=== PATIENT | male | born 1980 | race Caucasian/White ===

== ENCOUNTER 2023-02-18 12:54 | Inpatient (IN) | payer MEDICARE, MEDICAID ==
[~2023-02-18] VITALS: Ht 170.2 cm; Wt 84.0 kg
[~2023-02-18 12:54] MED LIST: DULO60CA59 PO; ESZO2TAB31 PO; GABA-532 PO; INSU100C10 SQ; LISI5TAB22 PO; PANT-47 PO; POTA15TA11 PO; WARF-65 PO
--- NOTE | 2023-02-18 13:09 | NUR ---
PT HAS AN INSULIN PUMP ADMINISTERED BOLUS PRIOR TO ARRIVAL PT UNSURE OF AMOUNT
[2023-02-18 13:13] LABS: BASOPHILS # (AUTO) 0.1 X10'3 (0-0.2); BASOPHILS % (AUTO) 0.3 % (0-1); EOSINOPHILS % (AUTO) 0 % (0-6); HEMOGLOBIN 12.4 g/dl (14.0-17.9); LYMPHOCYTES # (AUTO) 1.7 X10'3 (1.1-4.8); LYMPHOCYTES % (AUTO) 6.4 % (21-51); MEAN CORPUSCULAR HEMOGLOBIN 28.6 PG (27.0-31.0); MEAN CORPUSCULAR HGB CONC 33.5 g/dL (33.0-36.5); MEAN CORPUSCULAR VOLUME 85.5 FL (78-98); MONOCYTES # (AUTO) 1.6 X10'3 (0-0.9); NEUTROPHILS # (AUTO) 23.6 X10'3 (1.8-7.7); NEUTROPHILS % (AUTO) 87.3 % (42-75); PLATELET COUNT 207 X10'3 (140-440); RED BLOOD COUNT 4.33 X10'6 (4.70-6.10)
[2023-02-18 13:25] LABS: ALANINE AMINOTRANSFERASE 487 U/L (12-78); ALBUMIN 4.1 G/DL (3.4-5.0); ALBUMIN/GLOBULIN RATIO 1.6 (1.1-1.5); ALKALINE PHOSPHATASE 110 IU/L (46-116); ANION GAP 13 (8-16); ASPARTATE AMINO TRANSFERASE 297 U/L (10-37); BILIRUBIN,TOTAL 0.6 MG/DL (0.1-1.0); BLOOD UREA NITROGEN 32 MG/DL (7-18); CALCIUM 9.4 MG/DL (8.5-10.1); CHLORIDE 91 MMOL/L (99-107); GLUCOSE 444 MG/DL (70-104); POTASSIUM 4.8 MMOL/L (3.5-5.1); SODIUM 131 MMOL/L (135-145); TOTAL CARBON DIOXIDE 26.8 MMOL/L (24-32); TOTAL PROTEIN 6.6 G/DL (6.4-8.2); eGFR 37 ML/MIN
[2023-02-18] MEDS ORDERED: normal saline 1000ML IV soln IVB ONE ×2 (13:25)
[2023-02-18 13:33] LABS: MAGNESIUM 1.4 MG/DL (1.5-2.4)
[2023-02-18] MEDS ORDERED: CefTRIAXone 2gm/D5W 50ml BAG 50 ML IV ONE (13:35)
[2023-02-18] MEDS ORDERED: metoclopramide 5 mg/ml inj IV ONE (13:35)
[2023-02-18] MEDS ORDERED: ondansetron/PF 4mg/2ml inj IV ONE (13:35)
[2023-02-18 13:39] LABS: PLATELET ESTIMATE NORMAL; TOTAL CELLS COUNTED 100
[2023-02-18] MEDS ORDERED: normal saline 1000ML IV soln IV ONE ×2 (13:40→15:15)
[2023-02-18] MEDS ORDERED: morphine 4 MG/ML inj SYRINge IV ONE (13:50)
[2023-02-18 14:44] LABS: CLARITY,URINE CLOUDY (Clear); COLOR,URINE YELLOW (Yellow); GLUCOSE, URINE >=1000 mg/dl (Neg); KETONES,URINE 15 mg/dl (Neg); LEUKOCYTE ESTERASE ,URINE TRACE (Neg); NITRITES, URINE NEGATIVE (Neg); OCCULT BLOOD,URINE TRACE-INTACT (Neg); PROTEIN,URINE TRACE mg/dl (Neg); UROBILINOGEN,URINE 0.2 E.U/dL (0.2-1.0)
[2023-02-18 14:45] LABS: UA COLLECTION TYPE SUPRAPUBIC CATH
[2023-02-18 14:49] LABS: BACTERIA,URINE FEW /HPF (Neg); CAL OXALATE CRYSTALS 1+ /HPF (NEGATIVE); MUCUS STRANDS NONE SEEN /LPF (Neg); RBC,URINE 0-2 /HPF (0-2); RENAL CELLS, URINE FEW /HPF; SQUAMOUS EPITHELIAL CELL,UR NONE SEEN /LPF (FEW); WBC,URINE 0-4 /HPF (0-4)
[2023-02-18 14:50] LABS: FINE GRANULAR CAST 0-3 /LPF (NEGATIVE)
[2023-02-18] MEDS ORDERED: insulin regular, human 10 units/0.1 ml syringe SQ ONE (15:15)
[2023-02-18] MEDS ORDERED: ringers solution, lacted 1,000 ML IV ONE (15:15)
[2023-02-18] MEDS ORDERED: WARF4TAB69 PO (15:51)
[2023-02-18] MEDS ORDERED: WARF-55 PO (15:51)
[2023-02-18] MEDS ORDERED: ROSU20TA31 PO (15:52)
[2023-02-18] MEDS ORDERED: ONDA4TAB12 PO (15:53)
[2023-02-18] MEDS ORDERED: METO5TAB98 PO (15:54)
[2023-02-18] MEDS ORDERED: BUSP7.5T5 PO (15:55)
[2023-02-18] MEDS ORDERED: LOPE2CAP PO ×3 (15:56)
[2023-02-18] MEDS ORDERED: LACT1CAP65 PO (15:57)
[2023-02-18] MEDS ORDERED: MAGN200T8 PO (15:58)
[2023-02-18] MEDS ORDERED: CIDE600C PO (15:59)
[2023-02-18] MEDS ORDERED: CHOL20004 PO (16:00)
[2023-02-18] MEDS ORDERED: CRAN1CAP5 PO (16:01)
[2023-02-18] MEDS ORDERED: potassium Cl 20 mEq SR tablet PO PRN ×2 (16:15)
[2023-02-18] MEDS ORDERED: dextrose 50%-water 50ml dispensing syringe IV PRN ×2 (16:15)
[2023-02-18] MEDS ORDERED: MESSAGE TO PHARMACY PO ONE (16:15)
[2023-02-18] MEDS ORDERED: potassium Cl 40MEQ/1/2NS 520ml 520 ML IV PRN (16:15)
[2023-02-18] MEDS ORDERED: magnesium Cl slow-release 64mg tablet PO PRN (16:15)
[2023-02-18] MEDS: normal saline 1000ml 1,000 ML IV SCH ×2 (16:15→20:45)
[2023-02-18] MEDS ORDERED: magnesium 4gm in 100ml NS 100 ML IV PRN (16:15)
[2023-02-18] MEDS ORDERED: DEXTROSE 15 GM of carb/4 tabs (each vial/BOTTLE has 4 tablets) PO PRN ×2 (16:15)
[2023-02-18] MEDS ORDERED: acetaminophen 325mg tablet PO PRN (16:15)
[2023-02-18] MEDS ORDERED: glucagon, human recombinant 1mg kit SUBCUT PRN (16:15)
[2023-02-18] MEDS ORDERED: VANCOmycin 2,000MG in NS 500ml IV soln IV ONE (17:00)
[2023-02-18] MEDS: piperacillin/tazo 3.375gm/50ml 50 ML IV SCH ×2 (17:23→23:28)
--- NOTE | 2023-02-18 17:48 | NUR ---
DR CORADO NOTIFIED RE PTS INCREASED LACTIC ACID ORDERS TO REPEAT LACTIC LEVEL IN 6 HRS
--- NOTE | 2023-02-18 18:52 | NUR ---
PER DR FOX DO NOT TURN OF PTS INSULIN PUMP
[2023-02-18 19:08] VITALS: BP 132/73
[2023-02-18] MEDS: K and/or MAG REPLACEMENT MC SCH (19:13)
[2023-02-18] MEDS: pantoprazole 40mg Tablet.DR PO SCH (19:35)
[2023-02-18] MEDS: gabapentin 400mg capsule PO SCH (19:35)
[2023-02-18] MEDS: zolpidem 5mg tablet PO SCH (20:10)
[2023-02-18] MEDS: metoclopramide 10mg tablet PO SCH (20:10)
[2023-02-18] MEDS: busPIRone 5mg tablet PO SCH (20:10)
[2023-02-18] MEDS: insulin Lispro (HumaLOG) vial - multi-dose SQ SCH ×2 (20:21→21:13)
[2023-02-18] MEDS ORDERED: ROSUVASTATIN CALCIUM 5 MG TABLET PO SCH (21:00)
[2023-02-18] MEDS ORDERED: warfarin 5mg tablet PO ONE (21:00)
[2023-02-18] MEDS: insulin glargine (Lantus) pen - multi-dose SQ SCH (21:12)
[2023-02-18 22:14] VITALS: BP 97/49
[2023-02-19 02:21] VITALS: BP 92/51
[2023-02-19] MEDS: normal saline 1000ml 1,000 ML IV SCH ×2 (02:23→09:39)
--- NOTE | 2023-02-19 06:15 | NUR ---
Patient in room PCU 3013. I have received report from Bc ONEILL and had the opportunity to ask questions and assume patient care. Bedside report completed. Pt awake and alert, Call light in reach. Addendum: 02/19/23 at 0638 by Brisa Zuleta RN Amended: Links added.
[2023-02-19 06:59] LABS: BASOPHILS # (AUTO) 0.1 X10'3 (0-0.2); BASOPHILS % (AUTO) 0.3 % (0-1); EOSINOPHILS # (AUTO) 0.1 X10'3 (0-0.9); EOSINOPHILS % (AUTO) 0.3 % (0-6); HEMATOCRIT 32.7 % (42.0-52.0); HEMOGLOBIN 10.9 g/dl (14.0-17.9); LYMPHOCYTES # (AUTO) 2.5 X10'3 (1.1-4.8); LYMPHOCYTES % (AUTO) 11.9 % (21-51); MEAN CORPUSCULAR HEMOGLOBIN 28.7 PG (27.0-31.0); MEAN CORPUSCULAR HGB CONC 33.2 g/dL (33.0-36.5); MEAN CORPUSCULAR VOLUME 86.5 FL (78-98); MEAN PLATELET VOLUME 9.7 FL (7.4-10.4); MONOCYTES % (AUTO) 4.5 % (2-12); NEUTROPHILS # (AUTO) 17.7 X10'3 (1.8-7.7); PLATELET COUNT 166 X10'3 (140-440); RED BLOOD COUNT 3.78 X10'6 (4.70-6.10); RED CELL DISTRIBUTION WIDTH 13.5 % (11.5-14.5); WHITE BLOOD COUNT 21.3 X10'3 (4.5-11.0)
[2023-02-19 07:13] LABS: ALANINE AMINOTRANSFERASE 250 U/L (12-78); ALBUMIN 2.9 G/DL (3.4-5.0); ALBUMIN/GLOBULIN RATIO 1.4 (1.1-1.5); ALKALINE PHOSPHATASE 70 IU/L (46-116); ANION GAP 10 (8-16); ASPARTATE AMINO TRANSFERASE 90 U/L (10-37); BILIRUBIN,TOTAL 0.4 MG/DL (0.1-1.0); BLOOD UREA NITROGEN 31 MG/DL (7-18); BUN/CREATININE RATIO 24.4 (10.0-20.0); CALCIUM 7.7 MG/DL (8.5-10.1); CHLORIDE 103 MMOL/L (99-107); CREATININE 1.27 MG/DL (0.60-1.10); GLUCOSE 271 MG/DL (70-104); POTASSIUM 3.9 MMOL/L (3.5-5.1); SODIUM 137 MMOL/L (135-145); TOTAL CARBON DIOXIDE 23.9 MMOL/L (24-32); eGFR 63 ML/MIN
[2023-02-19 07:20] VITALS: BP 143/83
--- NOTE | 2023-02-19 07:29 | NUR ---
PAGER ID: [phone] MESSAGE: [id number] [place] PT 48.2 INR 5.2. Was 24.9/ 2.6 was given pharmacy dosed coumadin last noc. unknown amount. Brisa PICKARD
[2023-02-19] MEDS: ondansetron/PF 4mg/2ml inj IV PRN ×2 (07:34→13:53)
[2023-02-19] MEDS: K and/or MAG REPLACEMENT MC SCH ×2 (08:00→20:00)
[2023-02-19] MEDS: POTASSIUM CITRATE 15 MEQ PO SCH (08:00)
--- NOTE | 2023-02-19 08:15 | NUR ---
PAGER ID: [phone] MESSAGE: [id number] [place]. C/O pain 9 in back. C/O nausea zofran given. Pt has only tylenol for pain. Can we have an order for IV pain meds? Brisa PICKARD
[2023-02-19] MEDS: insulin Lispro (HumaLOG) vial - multi-dose SQ SCH ×3 (08:40→17:47)
[2023-02-19] MEDS: acetaminophen 325mg tablet PO PRN (08:41)
[2023-02-19] MEDS: morphine 2 MG/ML inj. syringe IV PRN ×3 (09:40→22:57)
[2023-02-19] MEDS: busPIRone 5mg tablet PO SCH ×3 (09:51→22:13)
[2023-02-19] MEDS: pantoprazole 40mg Tablet.DR PO SCH ×2 (09:51→19:47)
[2023-02-19] MEDS: metoclopramide 10mg tablet PO SCH ×3 (09:52→22:13)
[2023-02-19] MEDS: gabapentin 400mg capsule PO SCH ×2 (09:52→19:47)
[2023-02-19] MEDS: magnesium oxide 400mg tablet PO SCH (09:54)
[2023-02-19] MEDS: piperacillin/tazo 3.375gm/50ml 50 ML IV SCH ×2 (09:55→16:05)
[2023-02-19 11:36] VITALS: BP 159/81
[2023-02-19 15:32] VITALS: BP 162/87
[2023-02-19] MEDS ORDERED: vancomycin/NS 1 GM ADD-VANTAGE 250 ML IV SCH (17:00)
--- NOTE | 2023-02-19 17:55 | NUR ---
PAGER ID: [phone] MESSAGE: [id number] Karen Has had two SBP over 160. He is to have Crestor 20mg BID. [facility] does not carry that. He remains NPO with NS @ 150.
[2023-02-19 18:00] VITALS: BP 166/90
--- NOTE | 2023-02-19 18:29 | NUR ---
Problems reprioritized. Patient report given, questions answered & plan of care reviewed with Debra BAEZ. Bedside report completed. Pt C/O nausea. Zofran will be given when dose is due. Addendum: 02/19/23 at 1832 by Brisa Zuleta RN Amended: Links added.
[2023-02-19] MEDS: lisinopril 10 MG tablet PO SCH (19:47)
[2023-02-19] MEDS: amLODIPine 5mg tablet PO SCH (19:48)
[2023-02-19] MEDS: insulin glargine (Lantus) pen - multi-dose SQ SCH (21:00)
[2023-02-19 22:00] VITALS: BP 147/71
[2023-02-19] MEDS: atorvastatin 20mg tablet PO SCH (22:14)
[2023-02-19] MEDS: zolpidem 5mg tablet PO SCH (22:14)
[2023-02-19] MEDS: ondansetron 4mg rapidly disintigrating tab PO PRN (22:14)
[2023-02-20] MEDS: piperacillin/tazo 3.375gm/50ml 50 ML IV SCH ×4 (00:40→23:39)
[2023-02-20] MEDS: normal saline 1000ml 1,000 ML IV SCH ×3 (00:41→18:15)
[2023-02-20 02:00] VITALS: BP 167/71
--- NOTE | 2023-02-20 03:28 | NUR ---
AGREE WITH CORPORATE GENERAL MANAGER PHYSICAL ASSESSMENT CHARTED.
--- NOTE | 2023-02-20 04:12 | NUR ---
sent page to radiology : [id number] Brandt Jones - pt has order for CT, can he have it done now or if not now can he get it done first thing in the morning. thank you
[2023-02-20] MEDS: ondansetron/PF 4mg/2ml inj IV PRN ×3 (04:16→19:13)
[2023-02-20] MEDS: morphine 2 MG/ML inj. syringe IV PRN ×4 (04:19→21:16)
--- NOTE | 2023-02-20 04:20 | NUR ---
took pt down for CT
[2023-02-20] MEDS ORDERED: vancomycin/NS 1 GM ADD-VANTAGE 250 ML IV SCH (05:00)
[2023-02-20 05:32] LABS: CLARITY,URINE CLEAR (Clear); COLOR,URINE YELLOW (Yellow); GLUCOSE, URINE 250 mg/dl (Neg); KETONES,URINE 40 mg/dl (Neg); LEUKOCYTE ESTERASE ,URINE NEGATIVE (Neg); NITRITES, URINE NEGATIVE (Neg); OCCULT BLOOD,URINE TRACE-INTACT (Neg); PH,URINE 5.5 (4.8-8.0); PROTEIN,URINE NEGATIVE (Neg); UROBILINOGEN,URINE 0.2 E.U/dL (0.2-1.0)
[2023-02-20 05:43] LABS: UA COLLECTION TYPE OTHER
[2023-02-20 05:45] LABS: BACTERIA,URINE NONE SEEN /HPF (Neg); RBC,URINE 0-2 /HPF (0-2); SQUAMOUS EPITHELIAL CELL,UR FEW /LPF (FEW); WBC,URINE 0-4 /HPF (0-4)
[2023-02-20 06:16] LABS: URINE AMPHETAMINE SCREEN NEGATIVE (Neg); URINE BARBITUATE SCREEN NEGATIVE (Neg); URINE BENZODIAZEPINES SCREEN NEGATIVE (Neg); URINE CANNABINOID SCREEN POSITIVE (Neg); URINE COCAINE SCREEN NEGATIVE (Neg); URINE METHADONE SCREEN NEGATIVE (Neg); URINE OPIATE SCREEN POSITIVE (Neg); URINE PHENCYCLIDINE SCREEN NEGATIVE (Neg)
[2023-02-20 06:23] LABS: D-DIMER < 0.19 MG/L FEU (0-0.50)
[2023-02-20 06:29] LABS: BASOPHILS % (AUTO) 0.2 % (0-1); EOSINOPHILS % (AUTO) 0.1 % (0-6); HEMATOCRIT 34.5 % (42.0-52.0); HEMOGLOBIN 11.5 g/dl (14.0-17.9); LYMPHOCYTES # (AUTO) 1.2 X10'3 (1.1-4.8); LYMPHOCYTES % (AUTO) 7.6 % (21-51); MEAN CORPUSCULAR HEMOGLOBIN 28.9 PG (27.0-31.0); MEAN CORPUSCULAR HGB CONC 33.4 g/dL (33.0-36.5); MEAN CORPUSCULAR VOLUME 86.6 FL (78-98); MEAN PLATELET VOLUME 9.5 FL (7.4-10.4); MONOCYTES # (AUTO) 0.8 X10'3 (0-0.9); MONOCYTES % (AUTO) 5.2 % (2-12); NEUTROPHILS # (AUTO) 14.1 X10'3 (1.8-7.7); NEUTROPHILS % (AUTO) 86.9 % (42-75); PLATELET COUNT 149 X10'3 (140-440); RED BLOOD COUNT 3.98 X10'6 (4.70-6.10); RED CELL DISTRIBUTION WIDTH 13.3 % (11.5-14.5); WHITE BLOOD COUNT 16.2 X10'3 (4.5-11.0)
--- NOTE | 2023-02-20 06:29 | NUR ---
called critical lab to Dr Hansen PT 65.9 INR 7.2
--- NOTE | 2023-02-20 06:31 | NUR ---
Problems reprioritized. Patient report given, questions answered & plan of care reviewed with Enrrique ONEILL.
[2023-02-20 06:42] LABS: ALANINE AMINOTRANSFERASE 183 U/L (12-78); ALBUMIN 3.2 G/DL (3.4-5.0); ALBUMIN/GLOBULIN RATIO 1.1 (1.1-1.5); ALKALINE PHOSPHATASE 71 IU/L (46-116); ANION GAP 12 (8-16); ASPARTATE AMINO TRANSFERASE 46 U/L (10-37); BILIRUBIN,TOTAL 0.6 MG/DL (0.1-1.0); BLOOD UREA NITROGEN 23 MG/DL (7-18); BUN/CREATININE RATIO 22.5 (10.0-20.0); C-REACTIVE PROTEIN 2.97 MG/DL (0.0-0.5); CALCIUM 8.1 MG/DL (8.5-10.1); CHLORIDE 102 MMOL/L (99-107); CREATINE KINASE 217 U/L (39-308); CREATININE 1.02 MG/DL (0.60-1.10); GLUCOSE 197 MG/DL (70-104); LIPASE 74 U/L (73-393); PHOSPHORUS 2.3 MG/DL (2.3-4.5); POTASSIUM 3.5 MMOL/L (3.5-5.1); SODIUM 138 MMOL/L (135-145); TOTAL CARBON DIOXIDE 23.8 MMOL/L (24-32); eGFR 81 ML/MIN
[2023-02-20 07:00] VITALS: BP 164/78
[2023-02-20] MEDS: K and/or MAG REPLACEMENT MC SCH ×2 (08:00→19:57)
[2023-02-20] MEDS: POTASSIUM CITRATE 15 MEQ PO SCH (08:00)
[2023-02-20] MEDS: magnesium oxide 400mg tablet PO SCH (08:00)
[2023-02-20] MEDS: busPIRone 5mg tablet PO SCH ×3 (09:04→20:33)
[2023-02-20] MEDS: metoclopramide 10mg tablet PO SCH ×3 (09:04→20:33)
[2023-02-20] MEDS: lisinopril 10 MG tablet PO SCH (09:07)
[2023-02-20] MEDS: gabapentin 400mg capsule PO SCH ×2 (09:07→19:17)
[2023-02-20] MEDS: pantoprazole 40mg Tablet.DR PO SCH ×2 (09:07→19:18)
[2023-02-20] MEDS: amLODIPine 5mg tablet PO SCH (09:08)
[2023-02-20] MEDS: insulin Lispro (HumaLOG) vial - multi-dose SQ SCH ×2 (09:56→19:06)
--- NOTE | 2023-02-20 10:30 | NUR ---
Talked with pt and pt's mother about home med potassium citrate. Mother stated she would bring the pt's med in so we can start giving it.
[2023-02-20 11:00] VITALS: BP 153/76
[2023-02-20 15:00] VITALS: BP 138/63
[2023-02-20] MEDS: VANCOmycin 1250MG/NS 250ml Bag 250 ML IV SCH (16:11)
[2023-02-20 18:00] VITALS: BP 151/80
[2023-02-20] MEDS: acetaminophen 325mg tablet PO PRN (19:17)
[2023-02-20] MEDS: zolpidem 5mg tablet PO SCH (20:33)
[2023-02-20] MEDS: atorvastatin 20mg tablet PO SCH (20:34)
[2023-02-20] MEDS: insulin glargine (Lantus) pen - multi-dose SQ SCH (21:14)
[2023-02-20 22:00] VITALS: BP 151/76
[2023-02-21] MEDS: normal saline 1000ml 1,000 ML IV SCH ×2 (01:51→14:15)
[2023-02-21 02:00] VITALS: BP 136/69
[2023-02-21] MEDS ORDERED: VANCOMYCIN LEVEL IV ONE (04:30)
[2023-02-21] MEDS: VANCOmycin 1250MG/NS 250ml Bag 250 ML IV SCH (05:04)
[2023-02-21 06:39] LABS: BASOPHILS % (AUTO) 0.4 % (0-1); EOSINOPHILS % (AUTO) 0.3 % (0-6); HEMATOCRIT 36.7 % (42.0-52.0); HEMOGLOBIN 12.3 g/dl (14.0-17.9); LYMPHOCYTES % (AUTO) 20.1 % (21-51); MEAN CORPUSCULAR HEMOGLOBIN 29.3 PG (27.0-31.0); MEAN CORPUSCULAR HGB CONC 33.4 g/dL (33.0-36.5); MEAN CORPUSCULAR VOLUME 87.7 FL (78-98); MEAN PLATELET VOLUME 9.1 FL (7.4-10.4); MONOCYTES # (AUTO) 0.9 X10'3 (0-0.9); MONOCYTES % (AUTO) 8.9 % (2-12); NEUTROPHILS # (AUTO) 7.1 X10'3 (1.8-7.7); NEUTROPHILS % (AUTO) 70.3 % (42-75); PLATELET COUNT 146 X10'3 (140-440); RED BLOOD COUNT 4.19 X10'6 (4.70-6.10); WHITE BLOOD COUNT 10.1 X10'3 (4.5-11.0)
--- NOTE | 2023-02-21 06:40 | NUR ---
Problems reprioritized. Patient report given, questions answered & plan of care reviewed with Courtney RN.
[2023-02-21 06:54] LABS: ALANINE AMINOTRANSFERASE 120 U/L (12-78); ALBUMIN 2.9 G/DL (3.4-5.0); ALBUMIN/GLOBULIN RATIO 1.1 (1.1-1.5); ALKALINE PHOSPHATASE 70 IU/L (46-116); ANION GAP 4 (8-16); ASPARTATE AMINO TRANSFERASE 29 U/L (10-37); BILIRUBIN,TOTAL 0.8 MG/DL (0.1-1.0); BLOOD UREA NITROGEN 9 MG/DL (7-18); BUN/CREATININE RATIO 11.5 (10.0-20.0); CALCIUM 8.2 MG/DL (8.5-10.1); CHLORIDE 103 MMOL/L (99-107); CREATININE 0.78 MG/DL (0.60-1.10); GLUCOSE 65 MG/DL (70-104); SODIUM 137 MMOL/L (135-145); TOTAL CARBON DIOXIDE 30.5 MMOL/L (24-32); TOTAL PROTEIN 5.5 G/DL (6.4-8.2); eGFR > 90 ML/MIN
[2023-02-21 07:00] LABS: POTASSIUM 2.9 MMOL/L (3.5-5.1)
[2023-02-21 07:11] VITALS: BP 167/87
--- NOTE | 2023-02-21 07:16 | NUR ---
notified md of critical potassium of 2.9. pt is on protocol. see message below sent to md: PAGER ID: [phone] MESSAGE: room 3013A [place] - low potassium of 2.9. pt is on protocol - tiffany on tele [phone]
[2023-02-21] MEDS: amLODIPine 5mg tablet PO SCH (08:00)
[2023-02-21] MEDS: piperacillin/tazo 3.375gm/50ml 50 ML IV SCH (08:15)
[2023-02-21] MEDS: ondansetron/PF 4mg/2ml inj IV PRN ×3 (08:15→14:24)
[2023-02-21] MEDS: POTASSIUM CITRATE 15 MEQ PO SCH (08:22)
[2023-02-21] MEDS: busPIRone 5mg tablet PO SCH ×3 (08:22→20:03)
[2023-02-21] MEDS: atorvastatin 20mg tablet PO SCH (08:23)
[2023-02-21] MEDS: metoclopramide 10mg tablet PO SCH ×3 (08:23→20:03)
[2023-02-21] MEDS: pantoprazole 40mg Tablet.DR PO SCH ×2 (08:23→20:03)
[2023-02-21] MEDS: magnesium oxide 400mg tablet PO SCH (08:23)
[2023-02-21] MEDS: lisinopril 10 MG tablet PO SCH (08:23)
[2023-02-21] MEDS: gabapentin 400mg capsule PO SCH ×2 (08:23→20:03)
[2023-02-21] MEDS: K and/or MAG REPLACEMENT MC SCH ×2 (08:32→20:00)
[2023-02-21] MEDS: ampicillin inj 2 GM in normal saline 100ml IV soln 100 ML IV SCH ×3 (10:00→19:12)
[2023-02-21 10:12] LABS: MAGNESIUM 1.8 MG/DL (1.5-2.4)
[2023-02-21] MEDS: vancomycin/NS 1 GM ADD-VANTAGE 250 ML IV SCH ×2 (13:10→20:04)
[2023-02-21] MEDS: morphine 2 MG/ML inj. syringe IV PRN ×2 (16:34→21:08)
[2023-02-21 16:52] VITALS: BP 171/96
[2023-02-21 18:00] VITALS: BP 171/96
[2023-02-21 18:45] VITALS: BP 138/85
[2023-02-21] MEDS: insulin Lispro (HumaLOG) vial - multi-dose SQ SCH (19:00)
[2023-02-21] MEDS: ondansetron 4mg rapidly disintigrating tab PO PRN (19:04)
[2023-02-21] MEDS: zolpidem 5mg tablet PO SCH (20:03)
[2023-02-21] MEDS: insulin glargine (Lantus) pen - multi-dose SQ SCH (21:48)
[2023-02-21 22:00] VITALS: BP 131/78
[2023-02-21] MEDS ORDERED: potassium Cl 40MEQ/1/2NS 520ml 520 ML IV PRN ×2 (22:20)
[2023-02-21] MEDS ORDERED: potassium Cl 20 mEq SR tablet PO PRN ×2 (22:20)
[2023-02-22] MEDS: normal saline 1000ml 1,000 ML IV SCH ×2 (00:15→07:21)
[2023-02-22] MEDS: ampicillin inj 2 GM in normal saline 100ml IV soln 100 ML IV SCH ×2 (01:48→07:33)
[2023-02-22 02:00] VITALS: BP 129/80
[2023-02-22] MEDS ORDERED: VANCOMYCIN LEVEL IV ONE ×2 (04:30→12:30)
[2023-02-22] MEDS: vancomycin/NS 1 GM ADD-VANTAGE 250 ML IV SCH (04:41)
--- NOTE | 2023-02-22 06:14 | NUR ---
Problems reprioritized. Patient report given, questions answered & plan of care reviewed with Courtney RN.
[2023-02-22 07:14] LABS: BASOPHILS # (AUTO) 0.1 X10'3 (0-0.2); BASOPHILS % (AUTO) 0.9 % (0-1); EOSINOPHILS # (AUTO) 0.1 X10'3 (0-0.9); EOSINOPHILS % (AUTO) 0.9 % (0-6); HEMATOCRIT 35.6 % (42.0-52.0); HEMOGLOBIN 12.4 g/dl (14.0-17.9); LYMPHOCYTES % (AUTO) 29.1 % (21-51); MEAN CORPUSCULAR HEMOGLOBIN 29.8 PG (27.0-31.0); MEAN CORPUSCULAR HGB CONC 34.8 g/dL (33.0-36.5); MEAN CORPUSCULAR VOLUME 85.5 FL (78-98); MEAN PLATELET VOLUME 8.9 FL (7.4-10.4); MONOCYTES # (AUTO) 0.8 X10'3 (0-0.9); MONOCYTES % (AUTO) 12.4 % (2-12); NEUTROPHILS # (AUTO) 3.9 X10'3 (1.8-7.7); NEUTROPHILS % (AUTO) 56.7 % (42-75); PLATELET COUNT 155 X10'3 (140-440); RED BLOOD COUNT 4.17 X10'6 (4.70-6.10); RED CELL DISTRIBUTION WIDTH 12.9 % (11.5-14.5); WHITE BLOOD COUNT 6.8 X10'3 (4.5-11.0)
[2023-02-22] MEDS: morphine 2 MG/ML inj. syringe IV PRN (07:29)
[2023-02-22] MEDS: POTASSIUM CITRATE 15 MEQ PO SCH (07:30)
[2023-02-22] MEDS: gabapentin 400mg capsule PO SCH (07:31)
[2023-02-22] MEDS: amLODIPine 5mg tablet PO SCH (07:31)
[2023-02-22 07:32] VITALS: BP_SYST 144
[2023-02-22 07:32] LABS: ALANINE AMINOTRANSFERASE 94 U/L (12-78); ALBUMIN/GLOBULIN RATIO 1.2 (1.1-1.5); ALKALINE PHOSPHATASE 71 IU/L (46-116); ANION GAP 9 (8-16); ASPARTATE AMINO TRANSFERASE 26 U/L (10-37); BILIRUBIN,TOTAL 0.8 MG/DL (0.1-1.0); BLOOD UREA NITROGEN 10 MG/DL (7-18); BUN/CREATININE RATIO 13.5 (10.0-20.0); CALCIUM 8.1 MG/DL (8.5-10.1); CHLORIDE 100 MMOL/L (99-107); CREATININE 0.74 MG/DL (0.60-1.10); GLUCOSE 171 MG/DL (70-104); POTASSIUM 3.7 MMOL/L (3.5-5.1); SODIUM 139 MMOL/L (135-145); TOTAL CARBON DIOXIDE 29.7 MMOL/L (24-32); TOTAL PROTEIN 5.5 G/DL (6.4-8.2); eGFR > 90 ML/MIN
[2023-02-22] MEDS: atorvastatin 20mg tablet PO SCH (07:32)
[2023-02-22] MEDS: metoclopramide 10mg tablet PO SCH (07:32)
[2023-02-22] MEDS: lisinopril 10 MG tablet PO SCH (07:32)
[2023-02-22] MEDS: pantoprazole 40mg Tablet.DR PO SCH (07:32)
[2023-02-22] MEDS: busPIRone 5mg tablet PO SCH (07:32)
[2023-02-22] MEDS: magnesium oxide 400mg tablet PO SCH (07:33)
[2023-02-22] MEDS: ondansetron/PF 4mg/2ml inj IV PRN (07:51)
[2023-02-22] MEDS ORDERED: K and/or MAG REPLACEMENT MC SCH (08:00)
[2023-02-22] MEDS ORDERED: AMOX500C2 PO (10:43)
--- NOTE | 2023-02-22 14:57 | NUR ---
DM consult: Pt with A1c 8.2%, with h/o gastroparesis, pending a gastric stimulator at [facility] per H&P. Pt discharged prior to RD being available for bedside visit. Written DM and gastroparesis nutrition therapy educations, a list of fiber content in food, and RD contact information mailed to patient's home address found in EMR. Will remain available. Addendum: 02/22/23 at [address] Amended: Links added.
--- NOTE | 2023-02-22 17:34 | NUR ---
pt discharged to home today. pt verbalizes understanding regarding plan of care. pt to follow up with his pmd. changed out pts antonio bag as he has a chronic suprapubic catheter. vsego, dank/[id number] pt to picker machine operator antibiotic that was prescribed upon discharge. pt left via wheelchair, and his dad arrived to take him home.
[2023-02-22] MEDS ORDERED: warfarin 3mg tablet PO ONE (21:00)
== END 2023-02-22 14:20 | disposition home or self-care (01) | DRG 871 ==
LOC: ER 12:55 → ED HOLD 16:19 → PCU 3S 19:00
PROVIDERS: ADMIT Internal Medicine; ATTEND Internal Medicine
DX: A41.81 Sepsis due to Enterococcus (principal); N17.0 Acute kidney failure with tubular necrosis; N39.0 Urinary tract infection, site not specified; I82.5Y9 Chronic embolism and thrombosis of unspecified deep veins of unspecified proximal lower extremity; E10.65 Type 1 diabetes mellitus with hyperglycemia; Z20.822 Contact with and (suspected) exposure to COVID-19; Z96.41 Presence of insulin pump (external) (internal); F41.9 Anxiety disorder, unspecified; E86.0 Dehydration; F32.A Depression, unspecified; F17.210 Nicotine dependence, cigarettes, uncomplicated; E10.43 Type 1 diabetes mellitus with diabetic autonomic (poly)neuropathy; K31.84 Gastroparesis; N31.9 Neuromuscular dysfunction of bladder, unspecified; E87.6 Hypokalemia; R74.01 Elevation of levels of liver transaminase levels; Z88.5 Allergy status to narcotic agent; Z88.8 Allergy status to other drugs, medicaments and biological substances; Z79.899 Other long term (current) drug therapy; Z79.01 Long term (current) use of anticoagulants; Z79.4 Long term (current) use of insulin; Z93.59 Other cystostomy status
CPT/HCPCS: 36415; 71045; 71250; 74176; 80053; 80202; 80305; 81001; 82550; 82948; 83036; 83605; 83690; 83735; 83880; 84100; 84145; 84443; 84484; 85007; 85025; 85379; 85610; 85651; 86140; 86704; 86705; 86706; 87040; 87077; 87081; 87088; 87186; 87340; 87502; 87503; 87635; 93005; 93306; 96361; 96365; 96372; 96375; 97110; 97161; 97530; 99285; A4333; A6258; C1751; C9803; G0378; J0290; J0696; J1815; J2270; J2405; J2543; J2765; J3370; J3490; J7030; J7040; J7120

== ENCOUNTER 2023-10-04 09:34 | Outpatient (CLI) | payer MEDICARE, MEDICAID ==
[~2023-10-04 09:34] MED LIST changes: +APIX5TAB3 PO; +BUSP7.5T5 PO; +CHOL20004 PO; +CIDE600C PO; +CRAN1CAP5 PO; +LACT1CAP65 PO; -LISI5TAB22 PO; +LOPE2CAP PO; +MAGN200T8 PO; +METO5TAB98 PO; +ONDA4TAB12 PO; +PROC-8 PO; +ROSU20TA73 PO; -WARF-65 PO
== END 2023-10-04 23:59 | disposition home or self-care (01) ==
LOC: RAD 09:34
PROVIDERS: ATTEND Urology
DX: N20.1 Calculus of ureter (principal); N28.1 Cyst of kidney, acquired
CPT/HCPCS: 76770